=== PATIENT | female | born 1960 | race Two or more races ===

== ENCOUNTER 2022-06-26 06:18 | Inpatient (IN) | payer OTHER ==
[~2022-06-26] VITALS: Ht 165.1 cm; Wt 94.0 kg
[~2022-06-26 06:18] MED LIST: ATOR40TA52 PO; LEVO25TA6 PO; PANT40TA2 PO; TELM80TA PO
[2022-06-26] MEDS: VANCOMYCIN HCL 1000 MG VL ONE ×2 (07:10→09:34)
[2022-06-26] MEDS ORDERED: ceFAZolin 1GM/50ML 100 ML IV ONE (07:14)
[2022-06-26] MEDS ORDERED: KETAMINE HCL 10 ML ONE (07:19)
[2022-06-26] MEDS ORDERED: PROPOFOL 10 MG/ML 20 ML IV ONE ×6 (07:20→09:57)
[2022-06-26] MEDS ORDERED: KETOROLAC TROMETH 30 MG/ML 1ML VIAL ONE (07:20)
[2022-06-26] MEDS ORDERED: LIDOCAINE 2% (LOCAL ANESTH.) PF 5ml SDV ONE (07:20)
[2022-06-26] MEDS ORDERED: GLYCOPYRROLATE 0.2 MG/ML 1ML VIAL ONE (07:20)
[2022-06-26] MEDS ORDERED: ONDANSETRON HCL 4 MG/2 ML VIAL ONE (07:20)
[2022-06-26] MEDS ORDERED: TRANEXAMIC ACID 20 ML ONE (07:58)
[2022-06-26] MEDS ORDERED: SODIUM CHLORIDE LOCK 10 ML ONE (08:05)
[2022-06-26] MEDS ORDERED: PHENYLEPHRINE HCL 10 MG/ML VL ONE (08:05)
[2022-06-26] MEDS: ROPIVACAINE 0.5% (5MG/ML) 20ML AMPULE IJ ONE ×2 (08:22→09:34)
[2022-06-26] MEDS ORDERED: ePHEDrine SULFATE 50 MG/ML AMP ONE (08:26)
[2022-06-26] MEDS ORDERED: EPINEPHrine HCL 1 MG/1 ML AMP ONE ×2 (09:16→09:20)
[2022-06-26] MEDS ORDERED: oxyCODONE HCL 5MG TAB PO PRN (10:30)
[2022-06-26] MEDS ORDERED: HYDROmorphone HCL 2 MG/ML VL/or syr ONE (10:48)
[2022-06-26] MEDS: D5W/LACTATED RINGERS 1,000 ML IV SCH ×2 (10:55→20:49)
[2022-06-26] MEDS ORDERED: FLUMAZENIL 0.1 MG/ML INJ 10ML MDV IV PRN (11:00)
[2022-06-26] MEDS ORDERED: ePHEDrine SULFATE 50 MG/ML AMP IV PRN (11:00)
[2022-06-26] MEDS ORDERED: HYDROmorphone HCL 2 MG/ML VL/or syr IV PRN (11:00)
[2022-06-26] MEDS ORDERED: fentaNYL CITRATE 100 MCG/2 ML VL IV PRN (11:00)
[2022-06-26] MEDS ORDERED: LABETALOL HCL 5 MG/ML 4ML SYRINGE IV PRN (11:00)
[2022-06-26] MEDS ORDERED: hydrALAZINE HCL 20 MG/ML VL IV PRN (11:00)
[2022-06-26] MEDS ORDERED: NALOXONE HCL 0.4 MG/ML VIAL IV PRN (11:00)
[2022-06-26] MEDS ORDERED: ONDANSETRON HCL 4 MG/2 ML VIAL IV PRN ×2 (11:00→13:15)
[2022-06-26] MEDS: ACETAMINOPHEN 325 MG TAB PO SCH ×3 (12:00→23:30)
[2022-06-26] MEDS: ceFAZolin 2 GM in D5W 5% 100 ML IV SCH ×2 (15:10→22:27)
[2022-06-26 15:33] VITALS: BP 137/68
[2022-06-26] MEDS: oxyCODONE HCL 5MG TAB PO PRN (16:05)
[2022-06-26] MEDS ORDERED: FOLI1TAB6 PO (16:11)
[2022-06-26 16:33] VITALS: BP 128/67
[2022-06-26] MEDS: KETOROLAC TROMETH 30 MG/ML 1ML VIAL IV SCH ×2 (17:32→23:30)
[2022-06-26] MEDS: PREGABALIN 25 MG CAP PO SCH (20:50)
[2022-06-26 22:00] VITALS: BP 108/65
[2022-06-26] MEDS ORDERED: ATORVASTATIN 20 MG TAB PO SCH (22:00)
[2022-06-26] MEDS ORDERED: SENNA 8.6 MG TAB PO SCH (22:00)
[2022-06-27 05:00] VITALS: BP 118/62
[2022-06-27 05:01] VITALS: BP 118/62
[2022-06-27] MEDS: ACETAMINOPHEN 325 MG TAB PO SCH ×2 (05:31→12:30)
[2022-06-27] MEDS: KETOROLAC TROMETH 30 MG/ML 1ML VIAL IV SCH ×2 (05:32→12:30)
[2022-06-27] MEDS: D5W/LACTATED RINGERS 1,000 ML IV SCH ×2 (06:30→16:54)
[2022-06-27 06:40] LABS: Basophils # (auto) 0 10 ^3/uL (0-0.2); Basophils % (auto) 0.2 % (0.0-2.0); Eosinophils # (auto) 0 10 ^3/uL (0-0.8); Hematocrit 33.6 % (36.0-46.0); Hemoglobin 11.6 g/dL (12.2-16.2); Lymphocytes # (auto) 0.9 10 ^3/uL (0.4-5.4); Lymphocytes % (auto) 10.1 % (10.0-50.0); Mean Corpuscular Hgb Conc. 34.5 g/dL (32.0-36.0); Mean Corpuscular Volume 95.5 fL (80.0-100.0); Monocytes # (auto) 1.3 10 ^3/uL (0-1.3); Monocytes % (auto) 13.7 % (0.0-12.0); Neutrophils # (auto) 7.1 10 ^3/uL (1.6-8.6); Nucleated Red Blood Cells % 0.1 %; Red Blood Cells 3.52 10^6/uL (4.0-5.20); White Blood Cell 9.3 10^3/uL (4.4-10.8)
[2022-06-27 06:50] LABS: Calcium 8.8 mg/dL (8.5-10.1); Potassium 4.4 mmol/L (3.5-5.1)
[2022-06-27 06:53] LABS: BUN/Creatinine Ratio 15.6
[2022-06-27 09:00] VITALS: BP 108/63
[2022-06-27] MEDS ORDERED: LEVOTHYROXINE SODIUM 25 MCG TAB PO SCH (10:00)
[2022-06-27] MEDS ORDERED: LOSARTAN POTASSIUM 50 MG TAB PO SCH (10:00)
[2022-06-27] MEDS ORDERED: ASPirin 81 mg TAB PO SCH (10:00)
[2022-06-27] MEDS ORDERED: PATIENTS OWN MEDICATION (Atorvastatin Calcium 40 MG) PO SCH (10:00)
[2022-06-27] MEDS ORDERED: TELMISARTAN 40 MG PO SCH (10:00)
[2022-06-27] MEDS ORDERED: PANTOPRAZOLE 40 MG TAB PO SCH (10:00)
[2022-06-27] MEDS: PREGABALIN 25 MG CAP PO SCH (10:53)
[2022-06-27] MEDS: oxyCODONE HCL 5MG TAB PO PRN (10:55)
[2022-06-27 13:01] VITALS: BP 104/61
[2022-06-27 16:40] VITALS: BP 86/47
[2022-06-27 17:15] VITALS: BP 105/65
== END 2022-06-27 17:30 | disposition home health service (06) | DRG 470 ==
LOC: SUR 06:18 → TELE 10:38 → EAST 14:09
PROVIDERS: ADMIT Orthopaedic Surgery; ATTEND Orthopaedic Surgery
PROC: 0SRC069 Replacement of Right Knee Joint with Oxidized Zirconium on Polyethylene Synthetic Substitute, Cemented, Open Approach (ICD-10-PCS; principal; 2022-06-26 07:38)
DX: M17.11 Unilateral primary osteoarthritis, right knee (principal); E66.01 Morbid (severe) obesity due to excess calories; Z20.822 Contact with and (suspected) exposure to COVID-19; Z68.34 Body mass index [BMI] 34.0-34.9, adult
CPT/HCPCS: 36415; 73562; 80048; 85025; 86850; 86900; 86901; 87081; 97110; 97116; 97163; G0378; J0171; J0690; J1885; J2001; J2405; J2704; J7060